=== PATIENT | female | born 1990 | race Two or more races ===

== ENCOUNTER → 2019-02-10 09:47 | Outpatient (CLI) | payer OTHER | END | disposition home or self-care (01) | LOC: LAB 09:47 | DX: J11.1 Influenza due to unidentified influenza virus with other respiratory manifestations (principal); J11.81 Influenza due to unidentified influenza virus with encephalopathy ==

== ENCOUNTER → 2019-08-17 09:02 | Outpatient (CLI) | payer OTHER | END | disposition home or self-care (01) | LOC: LAB 09:02 | DX: N91.0 Primary amenorrhea (principal) ==

== ENCOUNTER 2019-08-31 15:58 | Emergency (ER) | payer OTHER ==
[~2019-08-31] VITALS: Ht 170.2 cm; Wt 99.8 kg
== END 2019-09-01 00:27 | disposition home or self-care (01) ==
LOC: ER 15:58
DX: O99.511 Diseases of the respiratory system complicating pregnancy, first trimester (principal); J15.7 Pneumonia due to Mycoplasma pneumoniae; O21.8 Other vomiting complicating pregnancy; O98.511 Other viral diseases complicating pregnancy, first trimester; B34.9 Viral infection, unspecified

== ENCOUNTER 2019-09-16 08:31 | Outpatient (CLI) | payer OTHER | END 2019-09-16 08:40 | disposition home or self-care (01) | LOC: LAB 08:31 | DX: Z34.80 Encounter for supervision of other normal pregnancy, unspecified trimester (principal) ==

== ENCOUNTER 2019-10-10 12:06 | Outpatient (CLI) | payer OTHER | END 2019-10-10 12:11 | disposition home or self-care (01) | LOC: LAB 12:06 | DX: Z34.80 Encounter for supervision of other normal pregnancy, unspecified trimester (principal) ==

== ENCOUNTER 2019-11-17 13:58 | Outpatient (CLI) | payer OTHER | END 2019-11-17 14:07 | disposition home or self-care (01) | LOC: LAB 13:58 | DX: Z34.80 Encounter for supervision of other normal pregnancy, unspecified trimester (principal) ==

== ENCOUNTER 2020-02-16 06:36 | Outpatient (CLI) | payer OTHER | END 2020-02-16 06:44 | disposition home or self-care (01) | LOC: LAB 06:36 | PROVIDERS: ATTEND Specialist | DX: Z34.80 Encounter for supervision of other normal pregnancy, unspecified trimester (principal); Z11.4 Encounter for screening for human immunodeficiency virus [HIV] ==

== ENCOUNTER 2020-03-20 10:59 | Outpatient (CLI) | payer OTHER | END 2020-03-20 11:03 | disposition home or self-care (01) | LOC: LAB 10:59 | PROVIDERS: ATTEND Specialist | DX: Z34.80 Encounter for supervision of other normal pregnancy, unspecified trimester (principal) ==

== ENCOUNTER 2020-04-02 14:45 | Inpatient (IN) | payer OTHER ==
[~2020-04-02] VITALS: Ht 170.2 cm; Wt 3.6 kg
[2020-04-12] MEDS ORDERED: PRENATAL TABLE1 EAC1 PO (06:57)
== END 2020-04-14 11:17 | disposition home or self-care (01) | DRG 785 ==
LOC: LDR 04-12 05:56 → OB/GYN 04-12 05:56 → O/R 04-12 07:53 → OB/GYN 04-12 10:21 → LDR 04-12 10:45 → OB/GYN 04-14 11:17 → LDR 04-21 10:45 → OB/GYN 04-21 10:45
PROVIDERS: ADMIT Specialist; ATTEND Specialist
PROC: 0UL70ZZ Occlusion of Bilateral Fallopian Tubes, Open Approach (ICD-10-PCS; 2020-04-12)
PROC: 4A1HXCZ Monitoring of Products of Conception, Cardiac Rate, External Approach (ICD-10-PCS; 2020-04-12)
PROC: 10D00Z1 Extraction of Products of Conception, Low, Open Approach (ICD-10-PCS; principal; 2020-04-12 07:00)
DX: O64.8XX0 Obstructed labor due to other malposition and malpresentation, not applicable or unspecified (principal); Z3A.38 38 weeks gestation of pregnancy; Z37.0 Single live birth; Z30.2 Encounter for sterilization; Z20.828 Contact with and (suspected) exposure to other viral communicable diseases

== ENCOUNTER 2020-08-28 13:58 | Outpatient (CLI) | payer OTHER ==
[~2020-08-28 13:58] MED LIST: PRENATAL TABLE1 EAC1 PO
== END 2020-08-28 14:00 | disposition home or self-care (01) ==
LOC: PPH VACUNA 13:58
DX: Z23 Encounter for immunization (principal)

== ENCOUNTER → 2021-03-28 | Outpatient (CLI) | payer OTHER | END | disposition home or self-care (01) | LOC: LAB 09:59 | PROVIDERS: ATTEND Emergency Medicine Pediatric Emergency Medicine | DX: Z03.818 Encounter for observation for suspected exposure to other biological agents ruled out (principal) ==

== ENCOUNTER 2021-04-03 08:45 | Outpatient (CLI) | payer OTHER | END 2021-04-03 09:09 | disposition home or self-care (01) | LOC: RAD 08:45 | PROVIDERS: ATTEND Internal Medicine Cardiovascular Disease | DX: M65.842 Other synovitis and tenosynovitis, left hand (principal); M79.642 Pain in left hand ==

== ENCOUNTER 2021-07-08 08:00 | Outpatient (CLI) | payer OTHER | END 2021-07-08 08:30 | disposition home or self-care (01) | LOC: PPH VACUNA 08:00 | PROVIDERS: ATTEND Emergency Medicine Pediatric Emergency Medicine | DX: Z23 Encounter for immunization (principal) ==

== ENCOUNTER 2021-09-10 07:26 | Outpatient (CLI) | payer OTHER | END 2021-09-10 07:28 | disposition home or self-care (01) | LOC: SONOGRAMA 07:26 | PROVIDERS: ATTEND Internal Medicine Cardiovascular Disease | DX: E03.8 Other specified hypothyroidism (principal); E04.2 Nontoxic multinodular goiter ==

== ENCOUNTER 2021-09-13 08:47 | Outpatient (CLI) | payer OTHER | END 2021-09-13 09:05 | disposition home or self-care (01) | LOC: TOM 08:47 | PROVIDERS: ATTEND Surgery | DX: R22.1 Localized swelling, mass and lump, neck (principal) ==

== ENCOUNTER 2021-09-19 09:40 | Outpatient (CLI) | payer OTHER | END 2021-09-19 09:43 | disposition home or self-care (01) | LOC: SONOGRAMA 09:40 | PROVIDERS: ATTEND Pathology Anatomic Pathology & Clinical Pathology | DX: R22.0 Localized swelling, mass and lump, head (principal) ==

== ENCOUNTER → 2021-10-21 08:36 | Outpatient (CLI) | payer OTHER | END | disposition home or self-care (01) | LOC: MRI 08:36 | PROVIDERS: ATTEND Otolaryngology | DX: R22.1 Localized swelling, mass and lump, neck (principal) | CPT/HCPCS: 70543 ==

== ENCOUNTER 2021-12-24 15:08 | Outpatient (CLI) | payer OTHER | END 2021-12-24 15:13 | disposition home or self-care (01) | LOC: LAB 15:08 | PROVIDERS: ATTEND Anesthesiology | DX: Z20.822 Contact with and (suspected) exposure to COVID-19 (principal) ==

== ENCOUNTER 2022-05-08 08:00 | Outpatient (CLI) | payer OTHER | END 2022-05-08 08:05 | disposition home or self-care (01) | LOC: PPH VACUNA 08:00 | PROVIDERS: ATTEND Emergency Medicine Pediatric Emergency Medicine | DX: Z23 Encounter for immunization (principal) ==

== ENCOUNTER 2022-05-24 08:30 | Outpatient (CLI) | payer OTHER | END 2022-05-24 08:35 | disposition home or self-care (01) | LOC: LAB 08:30 | PROVIDERS: ATTEND General Practice | DX: E78.5 Hyperlipidemia, unspecified (principal); E55.9 Vitamin D deficiency, unspecified; N39.0 Urinary tract infection, site not specified; Z00.00 Encounter for general adult medical examination without abnormal findings ==

== ENCOUNTER 2022-09-13 09:53 | Outpatient (CLI) | payer OTHER | END 2022-09-13 09:54 | disposition home or self-care (01) | LOC: LAB 09:53 | PROVIDERS: ATTEND Anesthesiology | DX: Z01.812 Encounter for preprocedural laboratory examination (principal) ==

== ENCOUNTER → 2025-01-09 06:14 | Outpatient (CLI) | payer OTHER ==
[2025-01-09 07:05] LABS: BASO % 0.7 % (0.1-1.2); EOS # 0.36 (0.04-0.54); EOS % 3.5 % (0.7-7.0); HEMATOCRIT 35.5 % (34.1-44.9); HEMOGLOBIN 11.8 g/dL (11.2-15.7); LYMPH # 2.45 (1.18-3.74); LYMPH % 23.9 % (19.3-53.1); MONO # 0.57 (0.24-0.82); MONO % 5.6 % (4.7-12.5); NEUT # 6.74 (1.56-6.13); NEUT % 65.7 % (34.0-71.1); PLATELET COUNT 307 K/uL (163-369); RED BLOOD COUNT 4.22 M/uL (3.93-5.22); RED CELL DISTRIBUTION WIDTH 13.4 % (11.6-14.4)
[2025-01-09 07:20] LABS: URINE APPEARANCE Cloudy; URINE BILIRRUBIN Negative (NEGATIVE); URINE BLOOD Negative; URINE COLOR Yellow; URINE GLUCOSE Negative (NEGATIVE); URINE KETONE Negative (NEGATIVE); URINE LEUKOCYTE Small; URINE NITRATE Negative; URINE PROTEIN Negative (NEGATIVE); URINE UROBILINOGEN 0.2 E.U./dl
[2025-01-09 07:22] LABS: URINE BACTERIA 2719.5 uL (0.0-1933); URINE EPITHELIAL CELLS 101.1 uL (0.0-38.8); URINE RBC 21.8 uL (0.0-20.8); URINE WBC 51.4 uL (0.0-23.2)
[2025-01-09 07:33] LABS: URINE CAST 0.58 uL (0.0-1.40)
[2025-01-09 07:34] LABS: URINE CRYSTALS MODERATE /HPF
[2025-01-09 08:17] LABS: CALCIUM 8.5 mg/dL (8.5-10.1); CHOL HDL RATIO 3.4 (0-5.0); CREATININE SERUM 0.56 mg/dL (0.55-1.02); GFR 123.92; POTASSIUM 3.99 mEq/L (3.5-5.1); TSH 1.1 uIU/mL (0.358-3.74)
[2025-01-09 14:20] LABS: VITAMIN D3 25 HYDROXY 27.77 ng/ml (30-120)
== END | disposition home or self-care (01) ==
LOC: LAB 06:14
DX: D64.9 Anemia, unspecified (principal); E03.9 Hypothyroidism, unspecified; R73.01 Impaired fasting glucose; E78.5 Hyperlipidemia, unspecified; N39.0 Urinary tract infection, site not specified; E55.9 Vitamin D deficiency, unspecified; N18.9 Chronic kidney disease, unspecified